=== PATIENT | female | born 1975 ===

== ENCOUNTER 2017-03-31 14:20 | Inpatient (IN) | payer MEDICAID, OTHER ==
[2017-03-31 14:23] VITALS: BMI 22.3
[2017-03-31] MEDS ORDERED: Sodium Chloride 0.9% 1,000 ML IV STA (15:02)
--- NOTE | 2017-03-31 15:20 | ED PDOC ---
Arrival/HPI <Rolanda Victor - Last Filed: 03/31/17 16:27> - General Historian: Patient, Family (daughter ) - History of Present Illness Time/Duration: > week Symptom Onset: Gradual Symptom Course: Worsening Quality: Aching (head) <JohnnieBecky - Last Filed: 03/31/17 16:43> - General Chief Complaint: Weakness/Neurological Deficit Time Seen by Provider: 03/31/17 14:32 - History of Present Illness Narrative History of Present Illness (Text): 03/31/17 15:21 Patient is a 41 y/o with pmh of gastric bypass, iron deficiency anemia 2nd to heavy menstruation, with h/o blood transfusion a year ago presenting with generalized weakness, dizziness, fever and dysuria. Patient states for a month she has been experiencing on/off dizziness and lightheadedness. Then last she noted burning when she urinates, with fouls smelly urine. Patient states [place] from [place] Then on Thursday she started to experience back pain, fever with max temp of 103. Patient states she vomited once on Thursday and once today. Patient denies diarrhea, admits to nausea. Admits to headache. Reports she always had headache, however today it got worse. Patient admits to photophobia, and feeling like the room if spinning. Patient took Tylenol for the headache and fever with some relieve. PMD: Dr Carr. (Becky Blair) Past Medical History - Provider Review Nursing Documentation Reviewed: Yes - Travel History Have you recently traveled outside [place] w/in the past 3 mons?: No - Infectious Disease Hx of Infectious Diseases: None - Tetanus Immunization Tetanus Immunization: Unknown - Cardiac Hx Cardiac Disorders: No - Pulmonary Hx Respiratory Disorders: No - Neurological Hx Neurological Disorder: No - HEENT Hx HEENT Disorder: No - Renal Hx Renal Disorder: No - Endocrine/Metabolic Hx Endocrine Disorders: No - Hematological/Oncological Hx Blood Disorders: Yes Hx Anemia: Yes (with transfusion) - Integumentary Hx Dermatological Disorder: No - Musculoskeletal/Rheumatological Hx Musculoskeletal Disorders: No Hx Falls: Yes (syncope) - Gastrointestinal Hx Gastrointestinal Disorders: Yes Hx Gastritis: Yes - Genitourinary/Gynecological Hx Genitourinary Disorders: No - Psychiatric Hx Psychophysiologic Disorder: No Hx Substance Use: No - Surgical History Hx Gastric Bypass Surgery: Yes (2009) - Anesthesia Hx Anesthesia: Yes Hx Anesthesia Reactions: No Hx Malignant Hyperthermia: No <Becky Blair Last Filed: 03/31/17 16:43> Family/Social History - Physician Review Nursing Documentation Reviewed: Yes Family/Social History: No Known Family HX Smoking Status: Never Smoked Hx Alcohol Use: No Hx Substance Use: No <Becky Blair - Last Filed: 03/31/17 16:43> Allergies/Home Meds <Rolanda Victor - Last Filed: 03/31/17 16:27> <Becky Blair - Last Filed: 03/31/17 16:43> Allergies/Adverse Reactions: Allergies No Known Allergies Allergy (Verified 03/31/17 14:23) Home Medications: Home Meds Medication Instructions Recorded Confirmed No Known Home Med 11/25/15 03/31/17 Review of Systems - Review of Systems Constitutional: Fatigue, Fevers Eyes: Photophobia. absent: Vision Changes ENT: absent: Tinnitus Respiratory: Normal Cardiovascular: Normal Gastrointestinal: Nausea, Vomiting. absent: Abdominal Pain, Diarrhea Genitourinary Female: Dysuria, Frequency. absent: Hematuria, Vaginal Bleeding, Vaginal Discharge Musculoskeletal: Back Pain Skin: Normal Neurological: Headache, Dizziness. absent: Focal Weakness Endocrine: Normal Hemo/Lymphatic: Normal Psychiatric: Normal <Becky Blair - Last Filed: 03/31/17 16:43> Physical Exam - Systems Exam Conjunctiva: Present: Other <Rolanda Victor - Last Filed: 03/31/17 16:27> Vital Signs Reviewed: Yes Temperature: Afebrile Blood Pressure: Normal Pulse: Regular Respiratory Rate: Normal Appearance: Positive for: Non-Toxic, Comfortable, Cachectic, Other (pale ) Pain Distress: None Mental Status: Positive for: Alert and Oriented X 3 - Systems Exam Head: Present: Atraumatic, Normocephalic Pupils: Present: PERRL Conjunctiva: Present: Other (pale sclera. ). No: Icteric Mouth: Present: Dry Neck: Present: Normal Range of Motion Respiratory/Chest: Present: Clear to Auscultation, Good Air Exchange. No: Respiratory Distress, Accessory Muscle Use, Wheezes, Rales, Rhonchi, Tachypneic Cardiovascular: Present: Regular Rate and Rhythm, Normal S1, S2. No: Murmurs, Irregular Rhythm, Tachycardic, Bradycardic, Rub, Gallop Abdomen: Present: Normal Bowel Sounds, Scars. No: Tenderness, Distention, Peritoneal Signs, Rebound, Guarding Back: Present: CVA Tenderness Upper Extremity: Present: Normal Inspection. No: Cyanosis, Edema Lower Extremity: Present: Normal Inspection. No: Edema Neurological: Present: GCS=15 Skin: Present: Warm, Dry, Normal Color. No: Rashes Psychiatric: Present: Alert, Oriented x 3, Normal Insight, Normal Concentration <Becky Blair - Last Filed: 03/31/17 16:43> Vital Signs Temp Pulse Resp BP Pulse Ox 03/31/17 15:02 98.5 F 03/31/17 14:26 98.6 F 86 19 100/66 98 Medical Decision Making <Rolanda Victor - Last Filed: 03/31/17 16:27> Re-evaluation Time: 16:20 - Lab Interpretations I have reviewed the lab results: Yes (hgb 6.3, wbc 16.8, hypokalemia.) <Becky Blair - Last Filed: 03/31/17 16:43> ED Course and Treatment: 03/31/17 16:28 Patient seen and examined with resident. Discussed plan and treatment and came up with it together. Exam with conjunctival pallor and cva tenderness. Labs showing significant leukocytosis and anemia with Hgb of 6.3. Will continue IVF and 2 units PRBC ordered. Patient consented for blood transfusion. Urine shows UTI and findings clinically are consistent with pyelonephritis. She will need to be admitted for IV antibiotics and blood transfusion. Patient to be admitted on the hospitalist's service; Dr. Cohcran is aware of patient. (Rolanda Victor) 03/31/17 15:35 Patient is a 41 y/o with pmh of gastric bypass, iron deficiency anemia 2nd to heavy menstruation, with h/o blood transfusion a year ago presenting with generalized weakness., dizziness and UTI symptoms. Differentials: Pyelonephritis, acute on chronic anemia, , vertigo, Plan: Urine test CBC, CMP, UA, TYPE AND SCREEN, LIPASE,MAG. CT abdomen and pelvis, chest x-ray Zofran, pepcid and 1 L NS bolus Discussed with Dr Victor. 03/31/17 16:23 Patient cbc revealed leukocytosis of 16.8, with H/H of 6.3/21.8. Patient also has UTI. Patient is typed and crossed for 2 units of prbc. Rocephin 1 gm IVP ordered. Patient to be admitted into the hospitalist service. Dr Cochran aware of the admission. (Becky Blair) - Lab Interpretations Lab Results: 03/31/17 15:20 03/31/17 15:20 Lab Results 03/31/17 15:20: Blood Type A POSITIVE, Antibody Screen Negative, Crossmatch See Detail, BBK History Checked Patient has bt 03/31/17 15:20: Sodium 136, Potassium 3.3 L, Chloride 104, Carbon Dioxide 24, Anion Gap 11, BUN 11, Creatinine 1.0, Est GFR ( Amer) > 60, Est GFR (Non- Af Amer) > 60, Random Glucose 92, Calcium 8.9, Magnesium 2.3 H, Total Bilirubin 0.4, AST 29, ALT 26, Alkaline Phosphatase 83, Total Protein 7.2, Albumin 3.5, Globulin 3.6, Albumin/Globulin Ratio 1.0 L, Lipase 87 03/31/17 15:20: WBC 16.8 H D, RBC 3.82, Hgb 6.3 L* D, Hct 21.8 L, MCV 57.1 L, MCH 16.5 L, MCHC 28.9 L, RDW 19.4 H, Plt Count 506 H, MPV 8.8, Gran % 75.5 H, Lymph % (Auto) 12.2 L, [place] % (Auto) 12.1 H, Eos % (Auto) 0.1 L, Baso % (Auto) 0.1, Gran # 12.69 H, Lymph # 2.0, [place] # 2.0 H, Eos # 0.0, Baso # 0.02 03/31/17 15:20: Urine Color Yellow, Urine Appearance Sl cloudy, Urine pH 6.0, Ur Specific [place] 1.010, Urine Protein 30 H, Urine Glucose (UA) Negative, Urine Ketones Negative, Urine Blood Small H, Urine Nitrate Negative, Urine Bilirubin Negative, Urine Urobilinogen 1.0 H, Ur Leukocyte Esterase Moderate H, Urine RBC 1 - 3, Urine WBC 15 - 20, Ur Epithelial Cells 1 - 3, Urine Bacteria Trace - RAD Interpretation Radiology Orders: 03/31/17 15:13 ABD & PELVIS W/O PO OR IV CONT [CT] Stat 03/31/17 15:21 CHEST TWO VIEWS (PA/LAT) [RAD] Stat - Medication Orders Current Medication Orders: Ceftriaxone Sodium (Rocephin 1 Gram Ivpb) 1 gm in 100 mls @ 200 mls/hr IVPB STAT STA PRN Reason: Protocol Stop: 03/31/17 16:54 Discontinued Medications Famotidine (Pepcid) 20 mg IVP STAT STA Stop: 03/31/17 15:03 Last Admin: 03/31/17 15:40 Dose: 20 mg Sodium Chloride (Sodium Chloride 0.9%) 1,000 mls @ 999 mls/hr IV .Q1H1M STA Stop: 03/31/17 16:02 Last Admin: 03/31/17 15:39 Dose: 999 mls/hr Ondansetron HCl (Zofran Inj) 4 mg IVP STAT STA Stop: 03/31/17 15:03 Last Admin: 03/31/17 15:30 Dose: 4 mg Potassium Chloride (Potassium Chloride Oral Soln) 40 meq PO STAT STA Stop: 03/31/17 16:13 - PA / PRODUCT/INDUSTRY CONSULTANT / Resident Statement / has reviewed & agrees with the documentation as recorded. KEI has examined the patient and agrees with the treatment plan. <Rolanda Victor - Last Filed: 03/31/17 16:27> Disposition/Present on Arrival <Rolanda Victor - Last Filed: 03/31/17 16:27> - Present on Arrival Any Indicators Present on Arrival: No History of DVT/PE: No History of Uncontrolled Diabetes: No Urinary Catheter: No History of Decub. Ulcer: No History Surgical Site Infection Following: None - Disposition Have Diagnosis and Disposition been Completed?: Yes Disposition Time: 16:25 Patient Plan: Admission (remote tele) <Becky Blair - Last Filed: 03/31/17 16:43> - Disposition Diagnosis: Anemia, Pyelonephritis Patient Problems: Current Active Problems Problem Status Onset Anemia Acute Pyelonephritis Acute Condition: STABLE Referrals: Sherrie Carr MD [Primary Care Provider] - Follow up with primary
[2017-03-31 15:43] LABS: BASO # 0.02 K/mm3 (0.0-2.0); BASO % 0.1 % (0.0-3.0); EOS % 0.1 % (1.5-5.0); GRAN # 12.69 (1.4-6.5); GRAN % 75.5 % (50.0-68.0); LYMPH % 12.2 % (22.0-35.0); MEAN CELL VOLUME 57.1 fL (80.0-105.0); MEAN CORPUSCULAR HEMOGLOBIN 16.5 pg (25.0-35.0); MEAN CORPUSCULAR HGB CONC 28.9 g/dl (31.0-37.0); MEAN PLATELET VOLUME 8.8 fl (7.0-11.0); MONO % 12.1 % (1.0-6.0); PLATELET COUNT 506 10^3/uL (120.0-450.0); RED CELL DISTRIBUTION WIDTH 19.4 % (11.5-14.5); WHITE BLOOD COUNT 16.8 10^3/ul (4.5-11.0)
[2017-03-31 15:44] LABS: URINE BILIRUBIN NEGATIVE (NEGATIVE); URINE BLOOD SMALL (NEGATIVE); URINE GLUCOSE (UA) NEGATIVE (NEGATIVE); URINE KETONE NEGATIVE (NEGATIVE); URINE LEUKOCYTE ESTERASE MODERATE Leu/uL (NEGATIVE); URINE PROTEIN 30 mg/dL (<30 mg/dL)
[2017-03-31 15:50] LABS: HEMATOCRIT 21.8 % (36.0-48.0)
[2017-03-31 15:51] LABS: URINE APPEARANCE SL CLOUDY (CLEAR); URINE COLOR YELLOW (YELLOW)
[2017-03-31 15:59] LABS: ALKALINE PHOSPHATASE 83 U/L (38-133); ALT/SGPT 26 U/L (7-56); AST/SGOT 29 U/L (15-39); BILIRUBIN,TOTAL 0.4 mg/dL (0.2-1.3); BLOOD UREA NITROGEN 11 mg/dL (7-21); CALCIUM 8.9 mg/dL (8.4-10.5); CARBON DIOXIDE 24 mmol/L (21-33); CHLORIDE 104 mmol/L (98-107); GFR AFRICAN-AMERICAN > 60; GLUCOSE,RANDOM 92 mg/dL (70-110); LIPASE 87 U/L (23-300); MAGNESIUM 2.3 mg/dL (1.7-2.2); POTASSIUM 3.3 mmol/L (3.6-5.0); SODIUM 136 mmol/L (132-148); TOTAL PROTEIN 7.2 g/dL (5.8-8.3)
[2017-03-31 16:09] LABS: URINE BACTERIA TRACE (NEG); URINE WBC 15 - 20 /hpf (0-6)
[2017-03-31] MEDS ORDERED: Potassium Chloride 40 mEq/30 ml LIQ UD PO STA (16:12)
[2017-03-31] MEDS ORDERED: cefTRIAXone 1 gm 1 GM/100 ML BAG IVPB STA (16:25)
[2017-03-31 16:58] LABS: ADD MANUAL DIFF? NO
--- NOTE | 2017-03-31 17:53 | CARD ---
APPROVED REPORT EKG Measurement Heart [id number] ME [id number] <Conclusion> Normal sinus rhythm Cannot rule out Anterior infarct, age undetermined Abnormal ECG
--- NOTE | 2017-03-31 18:20 | CP.PCM.HP ---
<Zeeshan Leal - Last Filed: 03/31/17 18:05> History of Present Illness - History of Present Illness History of Present Illness: This is a 40 y/o female with hx of chronic Fe deficient anemia with menorrhagia , hx gastric bypass presenting with complaints of dizziness, generalized weakness as well as fever and dysuria. Patient reports hx of anemia with prior treatment with both PO and IV iron. She reports heavy menses typically lasting about 12 days. She is not currently menstruating. Patient does report 2 episodes of vomiting yesterday with streaks of blood in vomitous. Patient notes shortness of breath with moderate exertion. Denies any chest pain however. Patient denies bloody stools or dark stools, she denies hematuria but notes dysuria over the past few days. Patient is also complaining of back pain as well. She notes subjective fever and chills at home. PMH: as above PSH: gastric bypass Social hx : denies etoh or tobacco use Allergies: NKDA Present on Admission - Present on Admission Any Indicators Present on Admission: No Review of Systems - Constitutional Constitutional: Chills, Fatigue, Fever - EENT Eyes: absent: Blurred Vision, Change in Vision Nose/Mouth/Throat: absent: Nasal Congestion, Nasal Discharge, Sore Throat - Cardiovascular Cardiovascular: Dyspnea. absent: Chest Pain, Irregular Heart Rhythm - Gastrointestinal Gastrointestinal: Abdominal Pain, Hematemesis, Vomiting. absent: Diarrhea, Dysphagia, Hematochezia, Melena, Nausea - Genitourinary Genitourinary: Dysuria, Flank Pain. absent: Hematuria - Musculoskeletal Musculoskeletal: Back Pain. absent: Neck Pain - Integumentary Integumentary: absent: Pruritus, Rash - Neurological Neurological: Dizziness, Weakness. absent: Numbness, Focal Weakness, Headaches , Syncope - Psychiatric Psychiatric: absent: Anxiety, Depression Past Patient History - Infectious Disease Hx of Infectious Diseases: None - Tetanus Immunizations Tetanus Immunization: Unknown - Past Medical History & Family History Past Medical History?: No - Past Social History Smoking Status: Never Smoked - CARDIAC Hx Cardiac Disorders: No - PULMONARY Hx Respiratory Disorders: No - NEUROLOGICAL Hx Neurological Disorder: No - HEENT Hx HEENT Problems: No - RENAL Hx Chronic Kidney Disease: No - ENDOCRINE/METABOLIC Hx Endocrine Disorders: No - HEMATOLOGICAL/ONCOLOGICAL Hx Blood Disorders: Yes Hx Anemia: Yes (with transfusion) - INTEGUMENTARY Hx Dermatological Problems: No - MUSCULOSKELETAL/RHEUMATOLOGICAL Hx Musculoskeletal Disorders: No Hx Falls: Yes (syncope) - GASTROINTESTINAL Hx Gastrointestinal Disorders: Yes Hx Gastritis: Yes - GENITOURINARY/GYNECOLOGICAL Hx Genitourinary Disorders: No - PSYCHIATRIC Hx Psychophysiologic Disorder: No Hx Substance Use: No - SURGICAL HISTORY Hx Gastric Bypass Surgery: Yes (2009) - ANESTHESIA Hx Anesthesia: Yes Hx Anesthesia Reactions: No Hx Malignant Hyperthermia: No Meds Allergies/Adverse Reactions: Allergies Allergy/AdvReac Type Severity Reaction Status Date / Time No Known Allergies Allergy Verified 03/31/17 14:23 Physical Exam - Constitutional Appears: Non-toxic, No Acute Distress - Head Exam Head Exam: ATRAUMATIC, NORMOCEPHALIC - Eye Exam Eye Exam: EOMI, PERRL - ENT Exam ENT Exam: Mucous Membranes Moist - Neck Exam Neck exam: Positive for: Normal Inspection - Respiratory Exam Respiratory Exam: Clear to Auscultation Bilateral. absent: Rales, Rhonchi, Wheezes - Cardiovascular Exam Cardiovascular Exam: REGULAR RHYTHM. absent: +S1, +S2 - GI/Abdominal Exam GI & Abdominal Exam: Normal Bowel Sounds, Soft, Tenderness (epigastric ) - Extremities Exam Extremities exam: Negative for: calf tenderness, pedal edema - Neurological Exam Neurological exam: Alert, Oriented x3 - Psychiatric Exam Psychiatric exam: Normal Affect, Normal Mood - Skin Skin Exam: Dry, Warm Results - Vital Signs Recent Vital Signs: Last Vital Signs Temp 98.3 F 03/31/17 17:39 Pulse 80 03/31/17 17:39 Resp 18 03/31/17 17:39 BP 133/76 03/31/17 17:39 Pulse Ox 98 03/31/17 14:26 - Labs Result Diagrams: 03/31/17 15:20 03/31/17 15:20 Assessment & Plan - Assessment and Plan (Free Text) Assessment: 41 y/o female with hx of chronic iron deficiency anemia, menorrhagia presenting with symptomatic anemia likely gynecological however GI source must be ruled out. Patient also with UTI vs pyelonephritis. microcytic anemia with associated dyspnea, dizziness, fatigue - transfuse 2 units - f/u H/H - GI consulted r/o GI bleed - liquid diet - stool occult - protonix 40 IV UTI vs pyelo - f/u CT - started on rocephen - urine cx pending ppx - SCDs - protonix 40 IV daily <Sammie,Anwar A - Last Filed: 04/01/17 07:22> Results - Vital Signs Recent Vital Signs: Last Vital Signs Temp 98.0 F 04/01/17 06:00 Pulse 70 04/01/17 06:00 Resp 18 04/01/17 06:00 BP 102/59 L 04/01/17 06:00 Pulse Ox 97 04/01/17 06:00 - Labs Result Diagrams: 03/31/17 15:20 03/31/17 15:20 Attending/Attestation - Attestation I have personally seen and examined this patient.: Yes I have fully participated in the care of the patient.: Yes I have reviewed all pertinent clinical information: Yes Notes (Text): 03/31/17 41 year old female with past medical history of chronic anemia and menorrhagia ( last period about 3 weeks ago) who presents with lightheadedness, dizziness and dyspnea likely secondary to symptomatic anemia given hemoglobin of 6.3. She will receive 2 units prbc transfusion. Anemia workup including iron studies and stool for occult blood is ordered. GI evaluation is also requested as she reports some epigastric discomfort and episodes of vomiting with "streaks of blood". Will follow up on CT abd/pelvis which was ordered. Continue with liquid diet as tolerated for now along with zofran prn and protonix. She will need close outpatient lens blank gauger follow up as well. She was also found to have UTI. +Right flank tenderness on examination. CT abd /pelvis ordered as above to rule out pyelonephritis. Will continue with ceftriaxone while awaiting Ucx. Leukocytosis likely secondary to UTI as above. CXR, UCx and BCx is pending. Hypokalemia was repleted in ER. Will repeat in AM. Family is also at bedside and questions were answered. Amaris Cochran MD Hospitalist.
--- NOTE | 2017-03-31 21:19 | CT ---
EXAM: CT Abdomen and Pelvis Without Intravenous Contrast CLINICAL HISTORY: 41 years old, female; Pain; Abdominal pain; Acute; Additional info: Flank pain - R/O renal stone TECHNIQUE: Axial computed tomography images of the abdomen and pelvis without intravenous contrast. This CT exam was performed using one or more of the following dose reduction techniques: automated exposure control, adjustment of the mA and/or kV according to patient size, and/or use of iterative reconstruction technique. Coronal and sagittal reformatted images were created and reviewed. COMPARISON: 04/01/2014 FINDINGS: Limitations: Lack of intravenous contrast. Lower thorax: Minimal atelectasis/scarring. ABDOMEN: Liver: Unremarkable. Gallbladder and bile ducts: No calcified stones. No ductal dilation. Pancreas: Unremarkable. No ductal dilation. Spleen: No splenomegaly. Adrenals: No mass. Kidneys and ureters: No renal calculi. No hydronephrosis. Stomach and bowel: Postsurgical changes of stomach. Postsurgical changes of small bowel. No definite mural thickening. No obstruction. Appendix: No definite findings to suggest acute appendicitis. PELVIS: Bladder: Unremarkable. No stones. Reproductive: Unremarkable as visualized. ABDOMEN and PELVIS: Intraperitoneal space: Trace free fluid within pelvis. No free air. Bones/joints: No acute fracture. Soft tissues: Unremarkable. Vasculature: Rounded calcification within RIGHT hemipelvis, likely stable and representing phlebolith. No aneurysm. Lymph nodes: No pathologically enlarged lymph nodes. IMPRESSION: 1. No definite CT evidence of urolithiasis. 2. Incidental/non-acute findings are described above.
[2017-03-31 22:28] LABS: IRON 14 ug/dL (45-180)
[2017-04-01 07:55] LABS: ADD MANUAL DIFF? NO
[2017-04-01 08:00] LABS: BASO # 0.03 K/mm3 (0.0-2.0); BASO % 0.2 % (0.0-3.0); EOS # 0.1 (0.0-0.7); EOS % 0.4 % (1.5-5.0); GRAN # 8.35 (1.4-6.5); GRAN % 67.2 % (50.0-68.0); LYMPH # 2.6 (1.2-3.4); LYMPH % 20.8 % (22.0-35.0); MEAN CELL VOLUME 62.8 fL (80.0-105.0); MEAN CORPUSCULAR HEMOGLOBIN 19.3 pg (25.0-35.0); MEAN CORPUSCULAR HGB CONC 30.7 g/dl (31.0-37.0); MONO # 1.4 (0.1-0.6); MONO % 11.4 % (1.0-6.0); PLATELET COUNT 432 10^3/uL (120.0-450.0); RED CELL DISTRIBUTION WIDTH 25.4 % (11.5-14.5); WHITE BLOOD COUNT 12.4 10^3/ul (4.5-11.0)
[2017-04-01 08:11] LABS: PARTIAL THROMBOPLASTIN TIME 34.4 Seconds (23.7-30.8)
[2017-04-01 08:29] LABS: ALKALINE PHOSPHATASE 76 U/L (38-133); ALT/SGPT 24 U/L (7-56); AST/SGOT 21 U/L (15-39); BILIRUBIN,TOTAL 0.7 mg/dL (0.2-1.3); BLOOD UREA NITROGEN 6 mg/dL (7-21); CALCIUM 8.8 mg/dL (8.4-10.5); CARBON DIOXIDE 23 mmol/L (21-33); CHLORIDE 107 mmol/L (95-110); GFR AFRICAN-AMERICAN > 60; GLUCOSE,RANDOM 104 mg/dL (70-110); POTASSIUM 3.7 mmol/L (3.6-5.0); SODIUM 137 mmol/L (132-148); TOTAL PROTEIN 6.4 g/dL (5.8-8.3)
[2017-04-01] MEDS: cefTRIAXone 1 gm 1 GM/100 ML BAG IVPB SCH (10:18)
--- NOTE | 2017-04-01 10:26 | RAD ---
HISTORY: anemia, shortness of breath COMPARISON: 11/26/2015. TECHNIQUE: Chest PA and lateral FINDINGS: LUNGS: The lungs are well inflated and clear. PLEURA: No significant pleural effusion identified. No pneumothorax apparent. CARDIOVASCULAR: Normal. OSSEOUS STRUCTURES: No significant abnormalities. VISUALIZED UPPER ABDOMEN: Normal. OTHER FINDINGS: None. IMPRESSION: No active pulmonary disease.
--- NOTE | 2017-04-01 13:41 | CP.PCM.PN ---
<Sheng Howard - Last Filed: 04/01/17 13:41> Subjective - Date & Time of Evaluation Date of Evaluation: 04/01/17 Time of Evaluation: 13:40 - Subjective Subjective: Medicine progress note. Attending: Dr. Cochran Pt seen examined at bedside. No acute distress. No events overnight. GI pending. Feeling much better. No fevers, chills, vomiting, diarrhea, cp, sob. Objective - Vital Signs/Intake and Output Vital Signs (last 24 hours): Temp Pulse Resp BP Pulse Ox 97.5 F L 58 L 20 139/87 97 04/01/17 12:00 04/01/17 12:00 04/01/17 12:00 04/01/17 12:00 04/01/17 06:00 Intake and Output: 04/01/17 04/01/17 06:59 18:59 Intake Total 776 331 Balance 776 331 - Medications Medications: Current Medications Acetaminophen (Tylenol 325mg Tab) 650 mg PO Q6 PRN PRN Reason: mild pain or fever Last Admin: 04/01/17 10:23 Dose: 650 mg Ceftriaxone Sodium (Rocephin 1 Gram Ivpb) 1 gm in 100 mls @ 100 mls/hr IVPB DAILY MARIA ESTHER PRN Reason: Protocol Last Admin: 04/01/17 10:18 Dose: 100 mls/hr Ondansetron HCl (Zofran Inj) 4 mg IVP Q6 PRN PRN Reason: Nausea/Vomiting Pantoprazole Sodium (Protonix Inj) 40 mg IVP DAILY COUNTS INCLUDE 234 BEDS AT THE [facility] Last Admin: 04/01/17 10:17 Dose: 40 mg - Labs Labs: 04/01/17 07:30 04/01/17 07:30 PT 10.8 Seconds (9.9-11.8) 04/01/17 07:30 INR 1.00 (0.93-1.08) 04/01/17 07:30 APTT 34.4 Seconds (23.7-30.8) H 04/01/17 07:30 - Constitutional Appears: Non-toxic, No Acute Distress - Head Exam Head Exam: ATRAUMATIC, NORMAL INSPECTION, NORMOCEPHALIC - Eye Exam Eye Exam: EOMI - ENT Exam ENT Exam: Mucous Membranes Moist - Respiratory Exam Respiratory Exam: NORMAL BREATHING PATTERN. absent: Respiratory Distress - Cardiovascular Exam Cardiovascular Exam: +S1, +S2 - GI/Abdominal Exam GI & Abdominal Exam: Soft, Tenderness, Normal Bowel Sounds - Extremities Exam Extremities Exam: Full ROM, Normal Inspection - Back Exam Back Exam: NORMAL INSPECTION - Neurological Exam Neurological Exam: Alert, Awake, Oriented x3 - Psychiatric Exam Psychiatric exam: Normal Affect, Normal Mood - Skin Skin Exam: Dry, Intact, Normal Color, Warm Assessment and Plan - Assessment and Plan (Free Text) Assessment: This is a 41 year old female with hx of chronic iron deficiency anemia, menorrhagia presenting with symptomatic anemia likely gynecological however GI source must be ruled out. Patient also with UTI vs pyelonephritis. microcytic anemia with associated dyspnea, dizziness, fatigue - s/p 2 units PRBCs - f/u H/H - GI consulted r/o GI bleed - liquid diet - stool occult pending - protonix 40 IV daily UTI vs pyelo - CT abdomen/pelvis was negative - started on rocephin 1 g daily - urine cx pending ppx - SCDs - protonix 40 IV daily discussed with Dr. Cochran <Amaris Cochran - Last Filed: 04/01/17 17:32> Objective - Vital Signs/Intake and Output Vital Signs (last 24 hours): Temp Pulse Resp BP Pulse Ox 97.5 F L 55 L 20 139/87 97 04/01/17 12:00 04/01/17 14:00 04/01/17 12:00 04/01/17 12:00 04/01/17 06:00 Intake and Output: 04/01/17 04/01/17 06:59 18:59 Intake Total 776 331 Balance 776 331 - Medications Medications: Current Medications Acetaminophen (Tylenol 325mg Tab) 650 mg PO Q6 PRN PRN Reason: mild pain or fever Last Admin: 04/01/17 10:23 Dose: 650 mg Ceftriaxone Sodium (Rocephin 1 Gram Ivpb) 1 gm in 100 mls @ 100 mls/hr IVPB DAILY COUNTS INCLUDE 234 BEDS AT THE [facility] PRN Reason: Protocol Last Admin: 04/01/17 10:18 Dose: 100 mls/hr Ondansetron HCl (Zofran Inj) 4 mg IVP Q6 PRN PRN Reason: Nausea/Vomiting Pantoprazole Sodium (Protonix Inj) 40 mg IVP DAILY COUNTS INCLUDE 234 BEDS AT THE [facility] Last Admin: 06/21/17 10:17 Dose: 40 mg - Labs Labs: 04/01/17 07:30 04/01/17 07:30 PT 10.8 Seconds (9.9-11.8) 04/01/17 07:30 INR 1.00 (0.93-1.08) 04/01/17 07:30 APTT 34.4 Seconds (23.7-30.8) H 04/01/17 07:30 Attending/Attestation - Attestation I have personally seen and examined this patient.: Yes I have fully participated in the care of the patient.: Yes I have reviewed all pertinent clinical information, including history, physical exam and plan: Yes Notes (Text): 04/01/17 17:28 41 year old female with past medical history of chronic anemia and menorrhagia ( last period about 3 weeks ago) who presented with symptomatic anemia with hemoglobin of 6.3. She received 2 units prbc transfusion with improvement of hemoglobin to 8.9 today. Her symptoms also have improved. CT abd/pelvis was negative. GI evaluation was requested who ordered for abdominal ultrasound. Continue with liquid diet as tolerated for now along with zofran prn and protonix. Will discuss with GI regarding possible endoscopic evaluation. She will need close outpatient special education administrator follow up as well. She was also found to have UTI. +Right flank tenderness yesterday on examination however CT abd/pelvis was negative. Will continue with ceftriaxone while awaiting Ucx. Leukocytosis has improved. Amaris Cochran MD Hospitalist.
--- NOTE | 2017-04-01 17:16 | CON ---
DATE: 04/01/2017 GASTROENTEROLOGY CONSULT Seen and examined at the bedside earlier this afternoon. REQUEST FOR CONSULT: For anemia, rule out GI bleed. HISTORY OF PRESENT ILLNESS: This is a 41-year-old female with a past medical history of gastric bypa ss, chronic iron deficiency anemia with . Came to the Emergency Room with complaints of general ized weakness, fevers, dysuria as well as complaints of dizziness. The patient reported having vomit ing yesterday with streaks of blood negative x 2. No complaints of any chest pains. Denies any cleopatra na or bright red blood per rectum. No complaints of any dysuria. Her menstruation was at least 2 we eks ago. On admission, the patient was found to have a hemoglobin of 6.3. She received 2 units of packed RBC. The patient does have a history of gastric ulcers in the past. She has had 3 endoscopies total, which were done in [place]. Initial endoscopy was done prior to her gastric bypass. She was found to have gastritis and she had another endoscopy and was found to have ulcers and her third endoscopy, which was done about a year and a half ago for followup of ulcer s. The patient states the third endoscopy was done at the same place and she was still found to have ulcers. She does complain of heartburn. She was given omeprazole 40 but ran out of the medication and is not taking any current medication. Unfortunately, the patient states she lost her insurance a nd did not follow up. She does complain of heavy periods and has history of fibroids. She has been evaluated by the [facility] [employer] [facility] before she lost her insurance, but failed to follow up due to the loss of her in surance. Denies ever having colonoscopy. On admission, she did have a CAT scan of the abdomen and p duane with no contrast and it showed post-surgical changes, no mural thickening in the bowel, no obst ruction. There is trace free fluid within the pelvis vasculature. In the right hemipelvis, there is a rounded, calcified, which likely may represent . The patient did complain of constipation oc casionally. She actually did not move her bowels for about a week and finally had a bowel movement t hat was hard and did notice some blood from her rectum, but also it was painful to pass the stool at that time. She does report hemorrhoids. No other bleeding reported. PAST MEDICAL HISTORY: Chronic iron deficiency anemia with , peptic ulcer disease. PAST SURGICAL HISTORY: Gastric bypass. FAMILY HISTORY: Noncontributory at this time. SOCIAL HISTORY: Denies smoking, ETOH, or substance abuse. ALLERGIES: No known drug allergies. MEDICATIONS: Reviewed as per MAR. REVIEW OF SYSTEMS: Systems were reviewed with positive findings; see HPI. VITAL SIGNS: Temperature is 97.5, blood pressure 139/87, pulse 58, respirations 20. LABORATORY DATA: WBC 12.4, H and H is now up to 8.9, hematocrit 29.0, platelets 432. PT 10.8, INR i s 1.00, PTT 34.4. Sodium is 137, K 3.7, BUN 6, creatinine is 0.6, magnesium is 2.3. Her total bilir ubin is 0.7, AST 21, ALT 24, alkaline phosphatase 76. Chest x-ray was done on admission as well and no significant pleural effusion, no pneumothorax. There is no active pulmonary disease. CT scan of abdomen and pelvis report was reviewed and discussed above. PHYSICAL EXAMINATION: HEENT: Sclerae are anicteric. NECK: Supple. CARDIAC: S1, S2. LUNGS: Sounds are clear. ABDOMEN: With bowel sounds, soft. She does have some epigastric tenderness. No rebound or guarding . EXTREMITIES: Positive pedal pulses, no edema. RECTAL: Does have external hemorrhoid. No bleeding noted on glove. Did not palpate any mass. ASSESSMENT: A 41-year-old female with history of chronic iron deficiency anemia, , came with sy mptomatic anemia. She does have a history of peptic ulcer disease, history of gastric bypass and lik wiliam urinary tract infection. Rule out pyelonephritis. PLAN: Continue clear liquid diet. Continue PPI. She is on 40 mg of Protonix daily. The patient is on ceftriaxone. In view of the epigastric discomfort, rule out any gallstones. Will request for ab dominal ultrasound and the patient would benefit from endoscopic evaluation and continue to monitor H and H. Thank you for this consult and for allowing us to participate in your patient's care. We will make f nani recommendations based upon the patient's clinical course. The patient was seen and case discu ssed with Dr. Aguilar. Nicole ROJAS cc: [id number] TT: 04/01/2017 17:15:44 Confirmation # [id number] Dictation # [id number] ln
--- NOTE | 2017-04-01 18:27 | US ---
HISTORY: epi pain COMPARISON: Comparison is made to the previous CT dated 03/31/2017 TECHNIQUE: Sonographic evaluation of the abdomen. FINDINGS: LIVER: Measures 16 cm. Normal echogenicity of the liver parenchyma. No mass. No intrahepatic bile duct dilatation. GALLBLADDER: Unremarkable. No gallstones. COMMON BILE DUCT: Measures 3.2 mm. No stones. No dilatation. PANCREAS: Unremarkable as visualized. No mass. No ductal dilatation. RIGHT KIDNEY: Measures 12.2 x 5.6 x 6.4cm. Normal echogenicity. No calculus, mass, or hydronephrosis. LEFT KIDNEY: Measures 11.3 x 5.4 x 6.2cm. Normal echogenicity. No calculus, mass, or hydronephrosis. SPLEEN: Normal in size and contour. No mass. AORTA: No aneurysmal dilatation. IVC: Unremarkable. OTHER FINDINGS: None. IMPRESSION: No evidence of acute pathology in the abdomen. No evidence of nephrolithiasis or hydronephrosis. No evidence of cholelithiasis or cholecystitis.
[2017-04-02 07:15] LABS: ADD MANUAL DIFF? NO
[2017-04-02 07:35] LABS: BASO # 0.05 K/mm3 (0.0-2.0); BASO % 0.6 % (0.0-3.0); EOS # 0.1 (0.0-0.7); EOS % 1.5 % (1.5-5.0); GRAN # 5.61 (1.4-6.5); GRAN % 63.9 % (50.0-68.0); HEMATOCRIT 28.3 % (36.0-48.0); LYMPH % 23.3 % (22.0-35.0); MEAN CELL VOLUME 62.6 fL (80.0-105.0); MEAN CORPUSCULAR HEMOGLOBIN 19.2 pg (25.0-35.0); MEAN CORPUSCULAR HGB CONC 30.7 g/dl (31.0-37.0); MEAN PLATELET VOLUME 8.9 fl (7.0-11.0); MONO # 0.9 (0.1-0.6); MONO % 10.7 % (1.0-6.0); PLATELET COUNT 454 10^3/uL (120.0-450.0); RED CELL DISTRIBUTION WIDTH 25.5 % (11.5-14.5); WHITE BLOOD COUNT 8.8 10^3/ul (4.5-11.0)
[2017-04-02 07:50] LABS: ALB/GLOB RATIO 0.9 (1.1-1.8); ALKALINE PHOSPHATASE 75 U/L (38-133); ALT/SGPT 23 U/L (7-56); AST/SGOT 21 U/L (15-39); BILIRUBIN,TOTAL 0.4 mg/dL (0.2-1.3); BLOOD UREA NITROGEN 7 mg/dL (7-21); CARBON DIOXIDE 25 mmol/L (21-33); CHLORIDE 105 mmol/L (98-107); GFR AFRICAN-AMERICAN > 60; GLUCOSE,RANDOM 75 mg/dL (70-110); PHOSPHOROUS 4.5 mg/dL (2.5-4.5); POTASSIUM 3.8 mmol/L (3.6-5.0); SODIUM 138 mmol/L (132-148); TOTAL PROTEIN 6.5 g/dL (5.8-8.3)
--- NOTE | 2017-04-02 08:06 | CON ---
DATE: 04/01/2017 ADDENDUM This patient was seen and evaluated earlier. This is an addendum to the GI consultation report charanjit shanna by Nicole ROJAS. Case was also discussed with Dr. Cochran. This patient has a history of anastomotic margin ulceration status post gastric bypass, now admitted with weakness, dysuria. The patient found to be anemic with a hemoglobin of 6.3. Suggestion of urinary tract infection, is being treated. On examination the a bdomen is soft, there is no obvious tenderness. IMPRESSION: Severe anemia, probably could be multifactorial etiology, could be related to gastric by pass and also anastomotic margin ulcer. The patient had endoscopies done in the past. The patient d enies now any obvious melena or bright red blood per rectum. RECOMMENDATION: We would. 1. Follow up with the hemoglobin and hematocrit. 2. PPI. 3. Continue the antibiotics and follow up of the culture. 4. Clear liquid diet. 5. The patient would benefit from endoscopic evaluation. Thank you very much for allowing us to participate in the care of the patient. Kristen Aguilar MD cc: [id number] TT: 04/01/2017 22:29:03 Confirmation # [id number] Dictation # [id number] karina
[2017-04-02] MEDS: cefTRIAXone 1 gm 1 GM/100 ML BAG IVPB SCH (09:07)
--- NOTE | 2017-04-02 12:23 | CP.PCM.PN ---
<Sheng Howard - Last Filed: 04/02/17 12:25> Subjective - Date & Time of Evaluation Date of Evaluation: 04/02/17 Time of Evaluation: 12:20 - Subjective Subjective: Med progress note. Attending: Dr. Cochran Pt seen/examined at bedside. No acute distress. No events overnight. Pt feeling much better. Plan for endoscopy tomorrow. No fevers, chills, vomiting, diarrhea. Objective - Vital Signs/Intake and Output Vital Signs (last 24 hours): Temp Pulse Resp BP Pulse Ox 97.5 F L 55 L 18 141/90 99 04/02/17 11:55 04/02/17 12:02 04/02/17 11:55 04/02/17 11:55 04/02/17 06:00 Intake and Output: 04/02/17 04/02/17 06:59 18:59 Intake Total 1200 Output Total 4 Balance 1196 - Medications Medications: Current Medications Acetaminophen (Tylenol 325mg Tab) 650 mg PO Q6 PRN PRN Reason: mild pain or fever Last Admin: 04/01/17 10:23 Dose: 650 mg Ceftriaxone Sodium (Rocephin 1 Gram Ivpb) 1 gm in 100 mls @ 100 mls/hr IVPB DAILY [facility] PRN Reason: Protocol Last Admin: 04/02/17 09:07 Dose: 100 mls/hr Ondansetron HCl (Zofran Inj) 4 mg IVP Q6 PRN PRN Reason: Nausea/Vomiting Pantoprazole Sodium (Protonix Inj) 40 mg IVP DAILY [facility] Last Admin: 04/02/17 09:07 Dose: 40 mg Polyethylene Glycol/Electrolytes (Golytely) 4,000 ml PO ONCE ONE Stop: 04/02/17 16:01 - Labs Labs: 04/02/17 06:50 04/02/17 06:50 PT 10.8 Seconds (9.9-11.8) 04/01/17 07:30 INR 1.00 (0.93-1.08) 04/01/17 07:30 APTT 34.4 Seconds (23.7-30.8) H 04/01/17 07:30 - Constitutional Appears: Non-toxic, No Acute Distress - Head Exam Head Exam: ATRAUMATIC, NORMAL INSPECTION, NORMOCEPHALIC - Eye Exam Eye Exam: EOMI - ENT Exam ENT Exam: Mucous Membranes Moist - Neck Exam Neck Exam: Full ROM, Normal Inspection - Respiratory Exam Respiratory Exam: NORMAL BREATHING PATTERN. absent: Respiratory Distress - Cardiovascular Exam Cardiovascular Exam: +S1, +S2 - GI/Abdominal Exam GI & Abdominal Exam: Soft, Normal Bowel Sounds. absent: Tenderness - Extremities Exam Extremities Exam: Full ROM, Normal Inspection - Back Exam Back Exam: NORMAL INSPECTION - Neurological Exam Neurological Exam: Alert, Awake, Oriented x3 - Psychiatric Exam Psychiatric exam: Normal Affect, Normal Mood - Skin Skin Exam: Dry, Intact, Normal Color, Warm Assessment and Plan - Assessment and Plan (Free Text) Assessment: This is a 41 year old female with hx of chronic iron deficiency anemia, menorrhagia presenting with symptomatic anemia likely gynecological however GI source must be ruled out. Patient also with UTI microcytic anemia with associated dyspnea, dizziness, fatigue - s/p 2 units PRBCs - f/u H/H - GI consulted r/o GI bleed - liquid diet - stool occult pending - protonix 40 IV daily -plan for egd tomorrow -npo after midnight -will give iv venofer today UTI -moderate LE in urine - CT abdomen/pelvis was negative - started on rocephin 1 g daily - urine cx pending ppx - SCDs - protonix 40 IV daily discussed with Dr. Cochran <Amaris Cochran - Last Filed: 04/02/17 17:13> Objective - Vital Signs/Intake and Output Vital Signs (last 24 hours): Temp Pulse Resp BP Pulse Ox 97.5 F L 59 L 18 141/90 99 04/02/17 11:55 04/02/17 14:00 04/02/17 11:55 04/02/17 11:55 04/02/17 06:00 Intake and Output: 04/02/17 04/02/17 06:59 18:59 Intake Total 1200 Output Total 4 Balance 1196 - Medications Medications: Current Medications Acetaminophen (Tylenol 325mg Tab) 650 mg PO Q6 PRN PRN Reason: mild pain or fever Last Admin: 04/02/17 15:25 Dose: 650 mg Ceftriaxone Sodium (Rocephin 1 Gram Ivpb) 1 gm in 100 mls @ 100 mls/hr IVPB DAILY [facility] PRN Reason: Protocol Last Admin: 04/02/17 09:07 Dose: 100 mls/hr Ondansetron HCl (Zofran Inj) 4 mg IVP Q6 PRN PRN Reason: Nausea/Vomiting Pantoprazole Sodium (Protonix Inj) 40 mg IVP DAILY [facility] Last Admin: 04/02/17 09:07 Dose: 40 mg - Labs Labs: 04/02/17 06:50 04/02/17 06:50 PT 10.8 Seconds (9.9-11.8) 04/01/17 07:30 INR 1.00 (0.93-1.08) 04/01/17 07:30 APTT 34.4 Seconds (23.7-30.8) H 04/01/17 07:30 Attending/Attestation - Attestation I have personally seen and examined this patient.: Yes I have fully participated in the care of the patient.: Yes I have reviewed all pertinent clinical information, including history, physical exam and plan: Yes Notes (Text): 04/02/17 17:12 41 year old female with past medical history of chronic anemia and menorrhagia ( last period about 3 weeks ago) who presented with symptomatic anemia with hemoglobin of 6.3. She received 2 units prbc transfusion with improvement of hemoglobin to 8.7 today. Her symptoms also have improved. CT abd/pelvis was negative. GI is following and planning for EGD/colonoscopy tomorrow. She is getting iv iron today and will need close outpatient ob gyn physician assistant follow up as well. She was also found to have UTI. Continue with ceftriaxone while awaiting Ucx. Leukocytosis has resolved. Amaris Cochran MD Hospitalist.
[2017-04-02] MEDS ORDERED: Peg-Electrolyte Oral Soln 4L (Golytely) PO ONE (16:00)
--- NOTE | 2017-04-02 16:22 | PN ---
DATE: 04/02/2017 HISTORY OF PRESENT ILLNESS: Seen and examined at the bedside earlier today. The patient with no new complaints. No reports of any nausea, vomiting or abdominal pain. No acute overnight events report ed. VITAL SIGNS: Temperature is 97.6, blood pressure is 104/61, pulse 69, respirations 18, 99% on room a ir. LABORATORY DATA: WBC 8.8, hemoglobin is 8.7, hematocrit is 28.3, platelets 454. Sodium 138, K 3.8, BUN is 7, creatinine is 0.6. LFTs are within normal limits. PHYSICAL EXAMINATION: HEENT: Sclerae anicteric. NECK: Supple. CARDIAC: S1, S2. LUNGS: Sounds are clear. ABDOMEN: With bowel sounds, soft, nontender. No rebound or guarding. NEUROLOGIC: Awake, alert, and oriented. ASSESSMENT: This is a 41-year-old female with history of chronic iron deficiency anemia, menometrorr hagia, came with severe anemia, rule out gastrointestinal bleed and urinary tract infection. The pat ient for abdominal ultrasound for the epigastric discomfort. That was negative for gallstones. The c ommon bile duct measured at 3.2 cm. No evidence of acute pathology. PLAN: The patient is for endoscopy tomorrow, EGD and colonoscopy. The patient has been placed on cl ear liquid diet and will receive GoLYTELY preparation starting at 4 p.m. today and n.p.o. after midni ght. We will follow up CMP and CBC in the a.m. She is also on IV antibiotics of ceftriaxone for inf ection. Continue Protonix 40 daily. N.p.o. after midnight except medications. I have discussed wit h the patient, who agrees, and discussed with the medical team. The patient was seen and case discus sed with Dr. Aguilar. Nicole ROJAS cc: [id number] TT: 04/02/2017 16:21:50 Confirmation # [id number] Dictation # [id number] ln
--- NOTE | 2017-04-02 23:59 | PN ---
DATE: 04/02/2017 ADDENDUM: This is an addendum to the GI progress report dictated by Nicole Bright APN. SUBJECTIVE: The patient was seen and evaluated earlier and denies any abdominal pain. No bleeding p er rectum. No melena. PHYSICAL EXAMINATION: ABDOMEN: Soft. There is no tenderness. IMPRESSION: This is a 41-year-old patient with status post gastric bypass, history of ulcer disease, probably anastomotic ulcers, admitted with severe anemia, status post transfusion. This patient wou ld benefit from esophagogastroduodenoscopy and a colonoscopy to further evaluate. The patient probab ly can have a , may be anastomotic ulcer, probable ischemic ulcer to be ruled out. PLAN: The importance of followup was discussed with the patient at length. I discussed with Dr. Yovani hart. Continue the PPI and followup of the hemoglobin and hematocrit. Thank you very much for allowing us to participate in the care of the patient. Kristen Aguilar MD cc: [id number] TT: 04/02/2017 23:58:15 Confirmation # [id number] Dictation # [id number] margaret
[2017-04-03 07:04] LABS: ADD MANUAL DIFF? NO
[2017-04-03 07:13] LABS: BASO # 0.05 K/mm3 (0.0-2.0); BASO % 0.6 % (0.0-3.0); EOS # 0.1 (0.0-0.7); EOS % 1.2 % (1.5-5.0); GRAN # 5.05 (1.4-6.5); GRAN % 61.5 % (50.0-68.0); LYMPH # 2.3 (1.2-3.4); LYMPH % 27.4 % (22.0-35.0); MEAN CELL VOLUME 62.5 fL (80.0-105.0); MEAN CORPUSCULAR HEMOGLOBIN 19.2 pg (25.0-35.0); MEAN CORPUSCULAR HGB CONC 30.7 g/dl (31.0-37.0); MEAN PLATELET VOLUME 8.7 fl (7.0-11.0); MONO # 0.8 (0.1-0.6); MONO % 9.3 % (1.0-6.0); PLATELET COUNT 436 10^3/uL (120.0-450.0); RED CELL DISTRIBUTION WIDTH 25.9 % (11.5-14.5); WHITE BLOOD COUNT 8.2 10^3/ul (4.5-11.0)
[2017-04-03 07:26] LABS: ALKALINE PHOSPHATASE 74 U/L (38-133); ALT/SGPT 26 U/L (7-56); AST/SGOT 19 U/L (15-39); BILIRUBIN,TOTAL 0.3 mg/dL (0.2-1.3); BLOOD UREA NITROGEN 7 mg/dL (7-21); CALCIUM 8.9 mg/dL (8.4-10.5); CARBON DIOXIDE 24 mmol/L (21-33); CHLORIDE 107 mmol/L (95-110); GFR AFRICAN-AMERICAN > 60; GLUCOSE,RANDOM 74 mg/dL (70-110); MAGNESIUM 1.9 mg/dL (1.7-2.2); PHOSPHOROUS 4.5 mg/dL (2.5-4.5); POTASSIUM 3.8 mmol/L (3.6-5.0); SODIUM 141 mmol/L (132-148); TOTAL PROTEIN 6.3 g/dL (5.8-8.3)
[2017-04-03] MEDS ORDERED: Dextrose 5%/0.45% NS 1,000 ML IV SCH (09:45)
[2017-04-03] MEDS ORDERED: cefTRIAXone 1 gm 1 GM/100 ML BAG IVPB ONE (10:50)
[2017-04-03] MEDS: cefTRIAXone 1 gm 1 GM/100 ML BAG IVPB SCH (10:54)
--- NOTE | 2017-04-03 11:05 | CP.PCM.PN ---
<Sheng Howard - Last Filed: 04/03/17 11:05> Subjective - Date & Time of Evaluation Date of Evaluation: 04/03/17 Time of Evaluation: 11:00 - Subjective Subjective: Medicine progress note. Attending: Sammie Pt seen/examined at bedside. No acute distress. No events overnight. No fevers, chills, vomiting, diarrhea. EGD pending. Objective - Vital Signs/Intake and Output Vital Signs (last 24 hours): Temp Pulse Resp BP Pulse Ox 97.7 F 47 L 20 111/63 99 04/03/17 05:40 04/03/17 05:40 04/03/17 05:40 04/03/17 05:40 04/03/17 05:40 Intake and Output: 04/03/17 04/03/17 06:59 18:59 Intake Total 300 Output Total 500 Balance -200 - Medications Medications: Current Medications Acetaminophen (Tylenol 325mg Tab) 650 mg PO Q6 PRN PRN Reason: mild pain or fever Last Admin: 04/02/17 15:25 Dose: 650 mg Ceftriaxone Sodium (Rocephin 1 Gram Ivpb) 1 gm in 100 mls @ 100 mls/hr IVPB DAILY [facility] PRN Reason: Protocol Last Admin: 04/03/17 10:54 Dose: 100 mls/hr Dextrose/Sodium Chloride (Dextrose 5%/0.45% Ns 1000 Ml) 1,000 mls @ 60 mls/hr IV .[id number] [facility] Last Admin: 04/03/17 10:55 Dose: 60 mls/hr Ondansetron HCl (Zofran Inj) 4 mg IVP Q6 PRN PRN Reason: Nausea/Vomiting Pantoprazole Sodium (Protonix Inj) 40 mg IVP DAILY [facility] Last Admin: 04/03/17 10:54 Dose: 40 mg - Labs Labs: 04/03/17 07:00 04/03/17 07:00 PT 10.8 Seconds (9.9-11.8) 04/01/17 07:30 INR 1.00 (0.93-1.08) 04/01/17 07:30 APTT 34.4 Seconds (23.7-30.8) H 04/01/17 07:30 - Constitutional Appears: Non-toxic, No Acute Distress - Head Exam Head Exam: ATRAUMATIC, NORMAL INSPECTION, NORMOCEPHALIC - Eye Exam Eye Exam: EOMI - Respiratory Exam Respiratory Exam: NORMAL BREATHING PATTERN. absent: Respiratory Distress - Cardiovascular Exam Cardiovascular Exam: +S1, +S2 - GI/Abdominal Exam GI & Abdominal Exam: Soft, Normal Bowel Sounds. absent: Tenderness - Extremities Exam Extremities Exam: Full ROM, Normal Inspection - Neurological Exam Neurological Exam: Alert, Awake, Oriented x3 - Psychiatric Exam Psychiatric exam: Normal Affect, Normal Mood - Skin Skin Exam: Dry, Intact, Normal Color, Warm Assessment and Plan - Assessment and Plan (Free Text) Assessment: This is a 41 year old female with hx of chronic iron deficiency anemia, menorrhagia presenting with symptomatic anemia likely gynecological however GI source must be ruled out. Patient also with UTI microcytic anemia with associated dyspnea, dizziness, fatigue - s/p 2 units PRBCs - f/u H/H - GI consulted r/o GI bleed - npo for egd today - stool occult pending - protonix 40 IV daily -plan for egd today UTI -moderate LE in urine - CT abdomen/pelvis was negative - started on rocephin 1 g daily - urine cx pending -will dc on cipro ppx - SCDs - protonix 40 IV daily discussed with Dr. Cochran <Amaris Cochran - Last Filed: 04/04/17 07:49> Objective - Vital Signs/Intake and Output Vital Signs (last 24 hours): Temp Pulse Resp BP Pulse Ox 98.4 F 46 L 14 145/77 99 04/03/17 18:15 04/03/17 18:15 04/03/17 18:15 04/03/17 18:15 04/03/17 18:15 - Labs Labs: 04/03/17 07:00 04/03/17 07:00 PT 10.8 Seconds (9.9-11.8) 04/01/17 07:30 INR 1.00 (0.93-1.08) 04/01/17 07:30 APTT 34.4 Seconds (23.7-30.8) H 04/01/17 07:30 Attending/Attestation - Attestation I have personally seen and examined this patient.: Yes I have fully participated in the care of the patient.: Yes I have reviewed all pertinent clinical information, including history, physical exam and plan: Yes Notes (Text): 04/03/17 41 year old female with past medical history of chronic anemia and menorrhagia ( last period about 3 weeks ago) who presented with symptomatic anemia with hemoglobin of 6.3. She received 2 units prbc transfusion with improvement of hemoglobin. Her symptoms also have improved. CT abd/pelvis was negative. GI is following and planning for EGD/colonoscopy this afternoon. She will likely be discharged this evening after EGD depending of findings. She will need close outpatient obstetrician gynecologist follow up as well. She was also found to have UTI. Continue with ceftriaxone while awaiting Ucx. Leukocytosis has resolved. Amaris Cochran MD Hospitalist.
[2017-04-03] MEDS ORDERED: Sodium Chloride 0.9% 1,000 ML IV SCH (17:30)
[2017-04-03 18:07] VITALS: O2SAT 99
[2017-04-03 19:11] VITALS: BP 145/77; PULSE 46; RESP 14; TEMP 98.4
--- NOTE | 2017-04-04 06:49 | CP.PCM.DIS ---
<Sheng Howard - Last Filed: 04/04/17 11:18> Provider - Provider Date of Admission: 03/31/17 16:25 Attending physician: Amaris Cochran MD Primary care physician: Sherrie Carr MD Consults: Jeff Time Spent in preparation of Discharge (in minutes): 45 Hospital Course - Lab Results Lab Results: Micro Results 03/31/17 21:35 Blood-Venous Blood Culture - Preliminary NO GROWTH AFTER 3 DAYS 03/31/17 21:20 Blood-Venous Blood Culture - Preliminary NO GROWTH AFTER 3 DAYS Most Recent Lab Values WBC 8.2 10^3/ul (4.5-11.0) 04/03/17 07:00 RBC 4.64 10^6/uL (3.5-6.1) 04/03/17 07:00 Hgb 8.9 gm/dL (12.0-16.0) L 04/03/17 07:00 Hct 29.0 % (36.0-48.0) L 04/03/17 07:00 MCV 62.5 fL (80.0-105.0) L 04/03/17 07:00 MCH 19.2 pg (25.0-35.0) L 04/03/17 07:00 MCHC 30.7 g/dl (31.0-37.0) L 04/03/17 07:00 RDW 25.9 % (11.5-14.5) H 04/03/17 07:00 Plt Count 436 10^3/uL (120.0-450.0) 04/03/17 07:00 MPV 8.7 fl (7.0-11.0) 04/03/17 07:00 Gran % 61.5 % (50.0-68.0) 04/03/17 07:00 Lymph % (Auto) 27.4 % (22.0-35.0) 04/03/17 07:00 [place] % (Auto) 9.3 % (1.0-6.0) H 04/03/17 07:00 Eos % (Auto) 1.2 % (1.5-5.0) L 04/03/17 07:00 Baso % (Auto) 0.6 % (0.0-3.0) 04/03/17 07:00 Gran # 5.05 (1.4-6.5) 04/03/17 07:00 Lymph # 2.3 (1.2-3.4) 04/03/17 07:00 [place] # 0.8 (0.1-0.6) H 04/03/17 07:00 Eos # 0.1 (0.0-0.7) 04/03/17 07:00 Baso # 0.05 K/mm3 (0.0-2.0) 04/03/17 07:00 PT 10.8 Seconds (9.9-11.8) 04/01/17 07:30 INR 1.00 (0.93-1.08) 04/01/17 07:30 APTT 34.4 Seconds (23.7-30.8) H 04/01/17 07:30 Sodium 141 mmol/L (132-148) 04/03/17 07:00 Potassium 3.8 mmol/L (3.6-5.0) 04/03/17 07:00 Chloride 107 mmol/L (95-110) 04/03/17 07:00 Carbon Dioxide 24 mmol/L (21-33) 04/03/17 07:00 Anion Gap 14 (10-20) 04/03/17 07:00 BUN 7 mg/dL (7-21) 04/03/17 07:00 Creatinine 0.6 mg/dL (0.5-1.4) 04/03/17 07:00 Est GFR ( Amer) > 60 04/03/17 07:00 Est GFR (Non-Af Amer) > 60 04/03/17 07:00 Random Glucose 74 mg/dL (70-110) 04/03/17 07:00 Calcium 8.9 mg/dL (8.4-10.5) 04/03/17 07:00 Phosphorus 4.5 mg/dL (2.5-4.5) 04/03/17 07:00 Magnesium 1.9 mg/dL (1.7-2.2) 04/03/17 07:00 Iron 14 ug/dL (45-180) L 03/31/17 15:20 TIBC 372 ug/dL (265-497) 03/31/17 15:20 % Saturation 4 % (20-55) L 03/31/17 15:20 Ferritin 15.0 ng/mL 03/31/17 15:20 Total Bilirubin 0.3 mg/dL (0.2-1.3) 04/03/17 07:00 AST 19 U/L (15-39) 04/03/17 07:00 ALT 26 U/L (7-56) 04/03/17 07:00 Alkaline Phosphatase 74 U/L (38-133) 04/03/17 07:00 Total Protein 6.3 g/dL (5.8-8.3) 04/03/17 07:00 Albumin 3.1 g/dL (3.0-4.8) 04/03/17 07:00 Globulin 3.2 gm/dL 04/03/17 07:00 Albumin/Globulin Ratio 1.0 (1.1-1.8) L 04/03/17 07:00 Lipase 87 U/L (23-300) 03/31/17 15:20 Urine Color Yellow (YELLOW) 03/31/17 15:20 Urine Appearance Sl cloudy (CLEAR) 03/31/17 15:20 Urine pH 6.0 (4.7-8.0) 03/31/17 15:20 Ur Specific [place] 1.010 (1.005-1.035) 03/31/17 15:20 Urine Protein 30 mg/dL (<30 mg/dL) H 03/31/17 15:20 Urine Glucose (UA) Negative mg/dL (NEGATIVE) 03/31/17 15:20 Urine Ketones Negative mg/dL (NEGATIVE) 03/31/17 15:20 Urine Blood Small (NEGATIVE) H 03/31/17 15:20 Urine Nitrate Negative (NEGATIVE) 03/31/17 15:20 Urine Bilirubin Negative (NEGATIVE) 03/31/17 15:20 Urine Urobilinogen 1.0 E.U./dL (<1 E.U./dL) H 03/31/17 15:20 Ur Leukocyte Esterase Moderate Latia/uL (NEGATIVE) H 03/31/17 15:20 Urine RBC 1 - 3 /hpf (0-2) 03/31/17 15:20 Urine WBC 15 - 20 /hpf (0-6) 03/31/17 15:20 Ur Epithelial Cells 1 - 3 /hpf (0-5) 03/31/17 15:20 Urine Bacteria Trace (NEG) 03/31/17 15:20 Urine HCG, Qual Negative (NEGATIVE) 04/03/17 08:00 Blood Type A POSITIVE 03/31/17 15:20 Antibody Screen Negative 03/31/17 15:20 Crossmatch See Detail 03/31/17 15:20 BBK History Checked Patient has bt 03/31/17 15:20 - Hospital Course Hospital Course: Admit date- 03/31 DC date- 04/03- This is a DC summary for April 03 2017 Attending: Sammie Consults Jeff Procedures- endoscopy No complications Stable for discharge HPI: see h/p Labs: see lab data Hospital course This is a 41 year old female with hx of chronic iron deficiency anemia, menorrhagia presenting with symptomatic anemia likely gynecological however GI source must be ruled out. 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 ciprofloxacin 2. ferrous sulfate 3. protonix DC instructions Please dc home. Please return if condition worsens. Fu with PMD within 3 days and GI as needed. - Date & Time of H&P Date of H&P: 03/31/17 Time of H&P: 18:05 Discharge Exam - Head Exam Head Exam: ATRAUMATIC, NORMAL INSPECTION, NORMOCEPHALIC - Eye Exam Eye Exam: EOMI - ENT Exam ENT Exam: Mucous Membranes Moist - Neck Exam Neck exam: Full Rom, Normal Inspection - Respiratory Exam Respiratory Exam: NORMAL BREATHING PATTERN, UNREMARKABLE - Cardiovascular Exam Cardiovascular Exam: +S1, +S2 - GI/Abdominal Exam GI & Abdominal Exam: Normal Bowel Sounds - Extremities Exam Extremities exam: full ROM, normal inspection - Neurological Exam Neurological exam: Alert, CN II-XII Intact, Oriented x3 - Psychiatric Exam Psychiatric exam: Normal Affect, Normal Mood - Skin Skin Exam: Dry, Intact, Normal Color, Warm Discharge Plan - Discharge Medications Prescriptions: Pantoprazole Sodium [Protonix] 40 mg PO DAILY #30 ect - Follow Up Plan Condition: STABLE Disposition: HOME/ ROUTINE Instructions: Ciprofloxacin (By mouth), Iron Supplements (By mouth), Gastritis (GEN), Soft Diet (DC), Acute Pyelonephritis (GEN), Regular Diet (GEN), Anemia ( GEN) Additional Instructions: 1. Pt is to fu with PMD, Dr. Carr within 1 week. 2. Pt is to Fu with GI, Dr. Aguilar within 1 week. 3. Pt is to fu with pathology report from GI 4. Pt is to continue with PPI 5. Pt is welcomed to return to [facility] if symptoms change or worsen Referrals: Sherrie Carr MD [Primary Care Provider] - <Amaris Cochran - Last Filed: 04/04/17 13:34> Provider - Provider Date of Admission: 03/31/17 16:25 Attending physician: Amaris Cochran MD Primary care physician: Sherrie Carr MD Hospital Course - Lab Results Lab Results: Micro Results 03/31/17 21:35 Blood-Venous Blood Culture - Preliminary NO GROWTH AFTER 3 DAYS 03/31/17 21:20 Blood-Venous Blood Culture - Preliminary NO GROWTH AFTER 3 DAYS Most Recent Lab Values WBC 8.2 10^3/ul (4.5-11.0) 04/03/17 07:00 RBC 4.64 10^6/uL (3.5-6.1) 04/03/17 07:00 Hgb 8.9 gm/dL (12.0-16.0) L 04/03/17 07:00 Hct 29.0 % (36.0-48.0) L 04/03/17 07:00 MCV 62.5 fL (80.0-105.0) L 04/03/17 07:00 MCH 19.2 pg (25.0-35.0) L 04/03/17 07:00 MCHC 30.7 g/dl (31.0-37.0) L 04/03/17 07:00 RDW 25.9 % (11.5-14.5) H 04/03/17 07:00 Plt Count 436 10^3/uL (120.0-450.0) 04/03/17 07:00 MPV 8.7 fl (7.0-11.0) 04/03/17 07:00 Gran % 61.5 % (50.0-68.0) 04/03/17 07:00 Lymph % (Auto) 27.4 % (22.0-35.0) 04/03/17 07:00 [place] % (Auto) 9.3 % (1.0-6.0) H 04/03/17 07:00 Eos % (Auto) 1.2 % (1.5-5.0) L 04/03/17 07:00 Baso % (Auto) 0.6 % (0.0-3.0) 04/03/17 07:00 Gran # 5.05 (1.4-6.5) 04/03/17 07:00 Lymph # 2.3 (1.2-3.4) 04/03/17 07:00 Parmer # 0.8 (0.1-0.6) H 04/03/17 07:00 Eos # 0.1 (0.0-0.7) 04/03/17 07:00 Baso # 0.05 K/mm3 (0.0-2.0) 04/03/17 07:00 PT 10.8 Seconds (9.9-11.8) 04/01/17 07:30 INR 1.00 (0.93-1.08) 04/01/17 07:30 APTT 34.4 Seconds (23.7-30.8) H 04/01/17 07:30 Sodium 141 mmol/L (132-148) 04/03/17 07:00 Potassium 3.8 mmol/L (3.6-5.0) 04/03/17 07:00 Chloride 107 mmol/L (95-110) 04/03/17 07:00 Carbon Dioxide 24 mmol/L (21-33) 04/03/17 07:00 Anion Gap 14 (10-20) 04/03/17 07:00 BUN 7 mg/dL (7-21) 04/03/17 07:00 Creatinine 0.6 mg/dL (0.5-1.4) 04/03/17 07:00 Est GFR ( Amer) > 60 04/03/17 07:00 Est GFR (Non-Af Amer) > 60 04/03/17 07:00 Random Glucose 74 mg/dL (70-110) 04/03/17 07:00 Calcium 8.9 mg/dL (8.4-10.5) 04/03/17 07:00 Phosphorus 4.5 mg/dL (2.5-4.5) 04/03/17 07:00 Magnesium 1.9 mg/dL (1.7-2.2) 04/03/17 07:00 Iron 14 ug/dL (45-180) L 03/31/17 15:20 TIBC 372 ug/dL (265-497) 03/31/17 15:20 % Saturation 4 % (20-55) L 03/31/17 15:20 Ferritin 15.0 ng/mL 03/31/17 15:20 Total Bilirubin 0.3 mg/dL (0.2-1.3) 04/03/17 07:00 AST 19 U/L (15-39) 04/03/17 07:00 ALT 26 U/L (7-56) 04/03/17 07:00 Alkaline Phosphatase 74 U/L (38-133) 04/03/17 07:00 Total Protein 6.3 g/dL (5.8-8.3) 04/03/17 07:00 Albumin 3.1 g/dL (3.0-4.8) 04/03/17 07:00 Globulin 3.2 gm/dL 04/03/17 07:00 Albumin/Globulin Ratio 1.0 (1.1-1.8) L 04/03/17 07:00 Lipase 87 U/L (23-300) 03/31/17 15:20 Urine Color Yellow (YELLOW) 03/31/17 15:20 Urine Appearance Sl cloudy (CLEAR) 03/31/17 15:20 Urine pH 6.0 (4.7-8.0) 03/31/17 15:20 Ur Specific [place] 1.010 (1.005-1.035) 03/31/17 15:20 Urine Protein 30 mg/dL (<30 mg/dL) H 03/31/17 15:20 Urine Glucose (UA) Negative mg/dL (NEGATIVE) 03/31/17 15:20 Urine Ketones Negative mg/dL (NEGATIVE) 03/31/17 15:20 Urine Blood Small (NEGATIVE) H 03/31/17 15:20 Urine Nitrate Negative (NEGATIVE) 03/31/17 15:20 Urine Bilirubin Negative (NEGATIVE) 03/31/17 15:20 Urine Urobilinogen 1.0 E.U./dL (<1 E.U./dL) H 03/31/17 15:20 Ur Leukocyte Esterase Moderate Latia/uL (NEGATIVE) H 03/31/17 15:20 Urine RBC 1 - 3 /hpf (0-2) 03/31/17 15:20 Urine WBC 15 - 20 /hpf (0-6) 03/31/17 15:20 Ur Epithelial Cells 1 - 3 /hpf (0-5) 03/31/17 15:20 Urine Bacteria Trace (NEG) 03/31/17 15:20 Urine HCG, Qual Negative (NEGATIVE) 04/03/17 08:00 Blood Type A POSITIVE 03/31/17 15:20 Antibody Screen Negative 03/31/17 15:20 Crossmatch See Detail 03/31/17 15:20 BBK History Checked Patient has bt 03/31/17 15:20 Attending/Attestation - Attestation I have personally seen and examined this patient.: Yes I have fully participated in the care of the patient.: Yes I have reviewed all pertinent clinical information, including history, physical exam and plan: Yes Notes (Text): 04/04/17 13:32 41 year old female with past medical history of chronic anemia and menorrhagia ( last period about 3 weeks ago) who presented with symptomatic anemia with hemoglobin of 6.3. She received 2 units prbc transfusion with improvement of hemoglobin. Her symptoms also have improved. CT abd/pelvis was negative. She is s/p EGD/colonoscopy with findings as above. She is discharged home to follow up with her pmd. Follow up with GI. Follow up with biopsy results. She will need close outpatient sprinkler tender follow up as well. Continue with po antibiotics for UTI. Continue with iron sulphate anemia. Amaris Cochran MD Hospitalist.
== END 2017-04-03 20:20 | disposition home or self-care (01) | DRG 812 ==
LOC: ED 14:20 → ERH 16:25 → 2RSO 04-01 00:20
PROVIDERS: ADMIT Internal Medicine; ATTEND Internal Medicine
PROC: 30233N1 Transfusion of Nonautologous Red Blood Cells into Peripheral Vein, Percutaneous Approach (ICD-10-PCS; 2017-03-31)
PROC: 0DJD8ZZ Inspection of Lower Intestinal Tract, Via Natural or Artificial Opening Endoscopic (ICD-10-PCS; 2017-04-03)
PROC: 0DBA8ZX Excision of Jejunum, Via Natural or Artificial Opening Endoscopic, Diagnostic (ICD-10-PCS; principal; 2017-04-03 16:15)
PROC: 0DB68ZX Excision of Stomach, Via Natural or Artificial Opening Endoscopic, Diagnostic (ICD-10-PCS; 2017-04-03 16:15)
DX: D50.9 Iron deficiency anemia, unspecified (principal); N10 Acute pyelonephritis; K28.7 Chronic gastrojejunal ulcer without hemorrhage or perforation; K29.70 Gastritis, unspecified, without bleeding; E87.6 Hypokalemia; N92.0 Excessive and frequent menstruation with regular cycle; K64.8 Other hemorrhoids